=== PATIENT | female | born 1975 | race Caucasian/White ===

== ENCOUNTER 2017-10-18 15:40 | Emergency (ER) | payer OTHER ==
[~2017-10-18] VITALS: Ht 167.6 cm; Wt 78.5 kg
[2017-10-18 15:57] VITALS: BP 138/75
[2017-10-18] MEDS ORDERED: ACETAMINOPHEN EXTRA STRENGTH 500 MG TAB ONE (16:03)
[2017-10-18] MEDS ORDERED: ACETAMINOPHEN EXTRA STRENGTH 500 MG TAB PO ONE (17:50)
[2017-10-18] MEDS ORDERED: KETOROLAC 30 MG/ML VIAL IM ONE (17:50)
[2017-10-18 18:20] VITALS: BP 120/76
== END 2017-10-18 18:20 | disposition home or self-care (01) ==
LOC: MED 15:40
DX: B34.9 Viral infection, unspecified (principal); R03.0 Elevated blood-pressure reading, without diagnosis of hypertension; E11.9 Type 2 diabetes mellitus without complications
CPT/HCPCS: 36415; 81002; 81025; 87804; 96372; 99284; J1885

== ENCOUNTER 2018-10-15 18:43 | Emergency (ER) | payer OTHER ==
[~2018-10-15] VITALS: Ht 165.1 cm; Wt 78.9 kg
[2018-10-15 18:51] VITALS: BP 132/88
--- NOTE | 2018-10-15 18:57 | NUR ---
PT AMBULATED TO ER BED 03
--- NOTE | 2018-10-15 19:30 | NUR ---
PT BIB SELF, COMES TO ER FOR C/O R EAR PAIN. PT STATES, " I FEEL DIZZY @ TIMES, AND THE ROOM FEELS LIKE IT IS SPINNING." PT HAS PMH OF DM TYPE 2, AND HIGH CHOLESTEROL. PT DENIES ALLERGIES. PT AAOX4, DENIES NUMBNESS OR TINGLING @ THIS TIME. S1 S2 HEARD, LUNGS CLEAR EVEN UNLABORED BILATERALLY VITAL SIGNS WNL. NO FEVER, CHILLS NOTED. SKIN INTACT. WILL CONTINUE TO OBSERVE.
--- NOTE | 2018-10-15 20:18 | NUR ---
Dr. Holm evaluating patient at bedside.
--- NOTE | 2018-10-15 20:29 | NUR ---
Patient discharged with v/s stable. Written and verbal after care instructions given and explained BY DR NAQVI. Patient alert, oriented and verbalized understanding of instructions. Ambulatory with steady gait. All questions addressed prior to discharge. ID band removed. Patient advised to follow up with PMD. Rx of AUGMENTIN AND ANTIVERT given BY DR NAQVI. Patient educated on indication of medication including possible reaction and side effects BY DR NAQVI. Opportunity to ask questions provided and answered.
[2018-10-15 20:42] VITALS: BP 132/81
== END 2018-10-15 20:29 | disposition home or self-care (01) ==
LOC: MED 18:43
DX: H81.21 Vestibular neuronitis, right ear (principal); E11.9 Type 2 diabetes mellitus without complications; Z90.49 Acquired absence of other specified parts of digestive tract
CPT/HCPCS: 99283

== ENCOUNTER 2023-02-25 20:40 | Emergency (ER) | payer OTHER ==
[~2023-02-25] VITALS: Ht 167.6 cm; Wt 77.1 kg
[2023-02-25 20:48] VITALS: BP 132/79; PULSE 70; RESP 18; TEMP 97.7; O2SAT 98
--- NOTE | 2023-02-25 21:00 | NUR ---
PT TO BED #7
[2023-02-25] MEDS ORDERED: NACL 0.9% 1,000 ML IV ONE (21:10)
--- NOTE | 2023-02-25 21:45 | NUR ---
DR ART AT BEDSIDE
[2023-02-25 21:51] LABS: BASOPHILS % (AUTO) 0.8 % (0.0-2.0); EOSINOPHILS % (AUTO) 0.5 % (0.0-4.0); HEMATOCRIT 38.2 % (36-48); HEMOGLOBIN 12.6 g/dL (12.0-16.0); LYMPHOCYTES # (AUTO) 2.5 K/uL (2.5-16.5); LYMPHOCYTES % (AUTO) 54.5 % (20.5-51.1); MEAN CORPUSCULAR HEMOGLOBIN 28 pg (27-31); MEAN CORPUSCULAR HGB CONC 33 g/dL (33-37); MONOCYTES # (AUTO) 0.3 K/uL (0.8-1.0); NEUTROPHILS # (AUTO) 1.8 K/uL (1.8-7.7); NEUTROPHILS % (AUTO) 38.2 % (42.2-75.2); PLATELET COUNT (AUTO) 184 K/uL (140-450); RED CELL DISTRIBUTION WIDTH 14.8 % (11.6-13.7); WHITE BLOOD COUNT (AUTO) 4.7 K/uL (4.8-10.8)
--- NOTE | 2023-02-25 21:51 | NUR ---
48YR OLD FEMALE BIB SELF C/O CP X1DAY. PT STATES CP RADATING TO L SHOULDER. PAIN LEVEL 6/10 PRESSURE /SHARP PAIN. STARTED LAST NIGHT PT WAS DIZZY TO ALMOST A SYNCOPAL EPSIODE. DENIES LOC. PT IS A&OX4 ANGOLAN SPEAKING. DENIES SOB. 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 HOB ELEVATED. SKIN WARM AND DRY. VS WNL BED AT LOWEST LEVEL NKDA DM
[2023-02-25 22:10] LABS: ALBUMIN 3.8 g/dL (3.4-5.0); ANION GAP 11.5 (8-16); CARBON DIOXIDE 28.7 mmol/L (21-32); CREATININE 0.9 mg/dL (0.6-1.3); POTASSIUM 4.2 mmol/L (3.5-5.1); TOTAL BILIRUBIN 0.2 mg/dL (0.0-1.0)
[2023-02-25 22:36] LABS: APPEARANCE,URINE CLEAR (CLEAR); BILIRUBIN,URINE NEGATIVE (NEGATIVE); BLOOD, URINE NEGATIVE (NEGATIVE); COLOR,URINE YELLOW (YELLOW); LEUKOCYTE ESTERASE ,URINE NEGATIVE (NEGATIVE); NITRITE, URINE NEGATIVE (NEGATIVE); UGLUCOSE NEGATIVE (NEGATIVE)
--- NOTE | 2023-02-25 23:43 | NUR ---
PT AWAKE WITH HOB ELEVATED. 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 RESP EVEN AND UNLABORED. PENDING DISPO
[2023-02-26] MEDS ORDERED: IBUP-2213 PO (00:10)
--- NOTE | 2023-02-26 00:37 | NUR ---
DR FENG AT BEDSIDE
[2023-02-26 00:50] VITALS: BP 128/72; PULSE 65; RESP 18; O2SAT 96
--- NOTE | 2023-02-26 00:50 | NUR ---
Patient discharged with v/s stable. Written and verbal after care instructions given and explained. Patient verbalized understanding. Ambulatory with steady gait. All questions addressed prior to discharge. Advised to follow up with PMD.
== END 2023-02-26 00:50 | disposition home or self-care (01) ==
LOC: MED 20:40
DX: R07.89 Other chest pain (principal); R55 Syncope and collapse; E11.9 Type 2 diabetes mellitus without complications; Z79.4 Long term (current) use of insulin; Z79.899 Other long term (current) drug therapy; Z90.49 Acquired absence of other specified parts of digestive tract
CPT/HCPCS: 36415; 71045; 80053; 81003; 81025; 83880; 84484; 85025; 93005; 96360; 99285; J7030